=== PATIENT | female | born 2000 | race African-American/Black ===

== ENCOUNTER 2025-05-03 10:49 | Emergency (ER) | payer SELFPAY ==
[2025-05-03] MEDS ORDERED: Ibuprofen 200 MG TAB ONE (12:05)
== END 2025-05-03 14:09 | disposition home or self-care (01) ==
LOC: ERS 10:49
DX: M54.50 Low back pain, unspecified (principal); V49.9XXA Car occupant (driver) (passenger) injured in unspecified traffic accident, initial encounter
CPT/HCPCS: 72100; 99283